=== PATIENT | male | born 1955 | race Caucasian/White ===

== ENCOUNTER 2019-10-31 07:20 | Outpatient (CLI) | payer OTHER, SELFPAY ==
[2019-10-31 07:54] LABS: Hematocrit 39.5 % (42.0-52.0); Hemoglobin 13.7 g/dL (14.0-18.0); Mean Corpuscular HGB Conc 34.7 g/dl (32-36); Mean Corpuscular Hemoglobin 32.3 pg (26-34); Mean Corpuscular Volume 93.2 fl (80-100); Mean Platelet Volume 9.3 fl (7.4-10.4); Platelet Count Result 351 k/mm3 (150-375); Red Blood Count 4.24 M/mm3 (4.6-6.20); Red Cell Distribution Width 12.2 % (11.5-14.5); White Blood Count 5.3 K/mm3 (4.5-10.0)
[2019-10-31 08:14] LABS: Alanine Aminotransferase 28 U/L (4-50); Albumin Level 4.4 g/dL (3.5-5.1); Alkaline Phosphatase 46 U/L (38-126); Aspartate Amino Transferase 32 U/L (17-59); Bilirubin,Total 0.3 mg/dL (0.2-1.3); Blood Urea Nitrogen 9 mg/dL (9-20); Calcium 9.1 mg/dL (8.4-10.2); Carbon Dioxide 24 mmol/L (22-30); Chloride 101 mmol/L (98-107); Cholesterol 201 mg/dL (0-200); Estimated Glomerular Filt Rate > 60; Glucose 95 mg/dL (75-110); HDL Direct 65 mg/dL; Potassium 4.2 mmol/L (3.4-5.0); Sodium 134 mmol/L (137-145); Triglycerides 87 mg/dL (<150)
[2019-10-31 08:25] LABS: LDL Cholesterol Direct 100 mg/dL
[2019-10-31 08:41] LABS: Vitamin D 25 Hydroxy 47.5 ng/mL
[2019-10-31 11:33] LABS: Folic Acid 15.1 ng/mL (2.76->20)
== END 2019-10-31 07:21 | disposition home or self-care (01) ==
PROVIDERS: PCP Internal Medicine; Visit Provider Internal Medicine
DX: R53.83 Other fatigue (principal); E78.00 Pure hypercholesterolemia, unspecified; E55.9 Vitamin D deficiency, unspecified; E53.8 Deficiency of other specified B group vitamins; I10 Essential (primary) hypertension
CPT/HCPCS: 36415; 80053; 80061; 82306; 82607; 82746; 84443; 85027

== ENCOUNTER 2020-04-25 09:43 | Outpatient (CLI) | payer OTHER, SELFPAY ==
[2020-04-25 10:32] LABS: Basophils Absolute Auto 0.1 K/mm3 (0.0-0.1); Basophils Percent Auto 0.8 % (0.2-1.2); Eosinophils Absolute Auto 0.1 K/mm3 (0-0.3); Eosinophils Percent Auto 1.3 % (0-4.4); Hemoglobin 14.2 g/dL (14.0-18.0); Immature Granulocyte Absolute 0.02 K/mm3 (0.00-0.031); Immature Granulocyte Percent A 0.3 % (0-0.5); Lymphocytes Percent Auto 32.3 % (18.3-44.2); Mean Corpuscular HGB Conc 34.6 g/dl (32-36); Mean Corpuscular Volume 95.3 fl (80-100); Mean Platelet Volume 9.1 fl (7.4-10.4); Monocytes Absolute Auto 0.9 K/mm3 (0.1-0.6); Monocytes Percent Auto 13.7 % (2.6-8.5); Neutrophils Absolute Auto 3.2 K/mm3 (1.3-6.7); Neutrophils Percent Auto 51.6 % (45.5-73.1); Platelet Count Result 368 k/mm3 (150-375); Red Cell Distribution Width 12.3 % (11.5-14.5); White Blood Count 6.2 K/mm3 (4.5-10.0)
[2020-04-25 11:16] LABS: Prostate Specific Antigen 2.6 ng/mL (< OR = 4.0)
[2020-04-25 11:46] LABS: Iron 99 ug/dL (49-181)
[2020-04-25 11:59] LABS: Percent Iron Saturation 30 % (20-50)
== END 2020-04-25 09:44 | disposition home or self-care (01) ==
PROVIDERS: PCP Internal Medicine; Visit Provider Internal Medicine
DX: R53.83 Other fatigue (principal); D64.9 Anemia, unspecified; Z12.5 Encounter for screening for malignant neoplasm of prostate; I10 Essential (primary) hypertension
CPT/HCPCS: 36415; 83540; 83550; 84153; 84443; 85025; G0103

== ENCOUNTER 2021-04-27 07:19 | Outpatient (CLI) | payer OTHER, SELFPAY ==
[2021-04-27 08:07] LABS: Basophils Percent Auto 0.8 % (0.2-1.2); Eosinophils Absolute Auto 0.1 K/mm3 (0-0.3); Eosinophils Percent Auto 2.7 % (0-4.4); Hemoglobin 13.8 g/dL (14.0-18.0); Immature Granulocyte Absolute 0.02 K/mm3 (0.00-0.031); Immature Granulocyte Percent A 0.4 % (0-0.5); Lymphocytes Absolute Auto 1.94 K/mm3 (0.9-3.2); Lymphocytes Percent Auto 37.7 % (18.3-44.2); Mean Corpuscular HGB Conc 35.4 g/dl (32-36); Mean Corpuscular Hemoglobin 33.2 pg (26-34); Mean Corpuscular Volume 93.8 fl (80-100); Mean Platelet Volume 9.1 fl (7.4-10.4); Monocytes Absolute Auto 0.7 K/mm3 (0.1-0.6); Monocytes Percent Auto 13.2 % (2.6-8.5); Neutrophils Absolute Auto 2.3 K/mm3 (1.3-6.7); Neutrophils Percent Auto 45.2 % (45.5-73.1); Platelet Count Result 343 k/mm3 (150-375); Red Blood Count 4.16 M/mm3 (4.6-6.20); Red Cell Distribution Width 11.9 % (11.5-14.5); White Blood Count 5.1 K/mm3 (4.5-10.0)
[2021-04-27 08:14] LABS: Iron 71 ug/dL (49-181)
[2021-04-27 08:15] LABS: Alanine Aminotransferase 27 U/L (4-50); Albumin Level 4.5 g/dL (3.5-5.1); Alkaline Phosphatase 44 U/L (38-126); Anion Gap 11 mmol/L (8-16); Aspartate Amino Transferase 36 U/L (17-59); Bilirubin,Total 0.3 mg/dL (0.2-1.3); Blood Urea Nitrogen 8 mg/dL (9-20); Carbon Dioxide 23 mmol/L (22-30); Chloride 98 mmol/L (98-107); Cholesterol 189 mg/dL (0-200); Estimated Glomerular Filt Rate > 60; Glucose 95 mg/dL (65-110); HDL Direct 79 mg/dL; Potassium 4.1 mmol/L (3.4-5.0); Sodium 132 mmol/L (137-145); Triglycerides 90 mg/dL (<150)
[2021-04-27 08:23] LABS: Percent Iron Saturation 24 % (20-50)
[2021-04-27 08:26] LABS: LDL Cholesterol Direct 77 mg/dL
[2021-04-27 08:34] LABS: Vitamin D 25 Hydroxy 44.3 ng/mL
[2021-04-27 08:46] LABS: Prostate Specific Antigen 2.5 ng/mL (< OR = 4.0)
[2021-05-01 18:12] LABS: Folic Acid 19.9 ng/mL (2.76->20)
== END 2021-04-27 07:20 | disposition home or self-care (01) ==
PROVIDERS: PCP Internal Medicine; Visit Provider Internal Medicine
DX: D64.9 Anemia, unspecified (principal); E55.9 Vitamin D deficiency, unspecified; E78.00 Pure hypercholesterolemia, unspecified; I10 Essential (primary) hypertension; R53.83 Other fatigue
CPT/HCPCS: 36415; 80053; 80061; 82306; 82607; 82746; 83540; 83550; 84153; 84443; 85025; G0103

== ENCOUNTER 2021-05-04 00:58 | Day surgery (SDC) | payer OTHER, SELFPAY ==
[2021-04-26 16:01] VITALS: BMI 30.4
[2021-05-04 08:25] VITALS: BP 148/88; PULSE 65; RESP 20; TEMP 37.1; O2SAT 100
--- NOTE | 2021-05-04 08:28 | WPDGICN ---
Assessment and Plan Assessment and plan (1) Rectal bleeding: Code(s): K62.5 - Hemorrhage of anus and rectum Status: Acute Assessment and Plan: Patient has had 1 month of bright red blood per rectum typically with wiping. Plan is for colonoscopy to evaluate more thoroughly. Because of possibility hemorrhoids fiber supplementation is encouraged. Further recommendations may be given after endoscopy. (2) History of colon polyps: Code(s): Z86.010 - Personal history of colonic polyps Status: Acute Assessment and Plan: Patient has a history of adenomatous colon polyps removed from the colon in 2011. Most recent colonoscopy 2017 revealed only mucosal polyp. Follow-up colonoscopy is advised because of this history of adenomatous colon polyps. GI Consult Note Consult date/time: 05/04/21 08:28 HPI: Oral Salmon is a 65 year old male Presents for colonoscopy. Patient has a history of colon polyps in the past. Patient had benign mucosal polyp removed 2016. He had adenomatous polyps removed 2011. He did well however over the last month his notice bright red blood per rectum. Initially this started with wiping but has become somewhat more noticeable over recent weeks. He denies any abdominal pain. His bowel habits are normal. He denies any weight loss. Family history is noncontributory. Patient presents today for surveillance colonoscopy. Review of Systems Review of Systems: All systems reviewed & are unremarkable except as noted in HPI and below PMFSH Family History Family History Mother Patient's mother is in good health Father Patient's father is Other Family history of arthritis Family history of cardiovascular disease Family history of glaucoma Hypertension Social History Social History Smoking packs per day: 2 Smoking cigarettes per day: 40.0 Years smoked: 30 Smoking pack-years: 60.00 Smoking status: Former smoker Tobacco type: cigarettes Second hand tobacco smoke exposure: No Smoking end date: 05/15/11 Alcohol intake: current Drinks per week: 6 Substance use: current Substance use type: marijuana Last use: 04-24-21 Living arrangements: with family Spiritual care concerns: No Meds Home Medications and Allergies Home Medications Medication Instructions Recorded Confirmed Type mecobalamin (vitamin B12) 1,000 1,000 mcg SUBLINGUAL DAILY 04/24/19 05/03/21 History mcg disintegrating tablet,sublingual atenolol 100 mg tablet 100 mg PO DAILY #90 tablet 09/18/20 05/03/21 Rx felodipine 5 mg tablet,extended 5 mg PO DAILY #90 tablet 09/18/20 05/03/21 Rx release 24 hr losartan 100 mg tablet 100 mg PO DAILY #90 tablet 09/18/20 05/03/21 Rx Allergies Allergy/AdvReac Type Severity Reaction Status Date / Time No Known Allergies Allergy Verified 05/04/21 08:24 Exam Narrative: Physical exam reveals patient to be alert. Vital signs stable. HEENT exam is unremarkable. Patient is anicteric. Lungs are clear to auscultation and to percussion. Heart is without murmur or extra sounds. Abdominal exam bowel sounds are present soft nontender with no organomegaly. Digital external rectal exam is normal.
[2021-05-04] MEDS: LACTATED RINGERS 1,000 ML 150 ML IV CONT (08:39)
[2021-05-04 09:56] VITALS: BP 104/70; PULSE 64; RESP 23; O2SAT 100
[2021-05-04 10:06] VITALS: BP 143/90; PULSE 66; RESP 17; O2SAT 100
[2021-05-04 10:16] VITALS: BP 141/89; PULSE 67; RESP 17; O2SAT 99
== END 2021-05-04 10:25 | disposition home or self-care (01) ==
PROVIDERS: PCP Internal Medicine; Visit Provider Internal Medicine Gastroenterology
PROC: 0DJD8ZZ Inspection of Lower Intestinal Tract, Via Natural or Artificial Opening Endoscopic (ICD-10-PCS; CPT 45378; principal; 2021-05-04 09:30)
DX: K62.5 Hemorrhage of anus and rectum (principal); K64.8 Other hemorrhoids; Z86.010 Personal history of colon polyps; Z87.891 Personal history of nicotine dependence
CPT/HCPCS: 45378; J2704; J7120

== ENCOUNTER 2024-12-04 08:34 | Outpatient (CLI) | payer OTHER, SELFPAY ==
--- NOTE | ~2024-12-04 | CT_ITS ---
EXAMINATION: CT lung screening DATE: 12/04/2024 08:50 INDICATION: Z87.891 - Personal history of nicotine dependence TECHNIQUE: Computed tomography (CT) of the chest was performed without intravenous contrast. Addition al 3D reconstructions utilizing coronal maximum intensity projection (MIP) were performed. Automated exposure control and iterative reconstruction technique were employed. The dose-length product was 21 2.65 mGy-cm. COMPARISON: None FINDINGS: Mild emphysema. Mild discoid atelectasis at the posterior basilar right lower lobe and along the ante romedial right minor fissure. A few <3 mm nodules in the left lower lobe and lingula. No pneumonia, p ulmonary edema or pleural effusion. Heart size is normal. Atherosclerotic coronary artery calcific le amos. No pericardial effusion. Thoracic aorta is normal in caliber. Mild bilateral gynecomastia. Smal l sliding-type hiatal hernia. No pathologically enlarged thoracic lymphadenopathy. There are a few lo w-attenuation hepatic lesions measuring up to 1.3 cm which could represent hepatic cysts or hemangiom as. Couple small atherosclerotic calcifications at the right renal hilum. Moderate to severe thoracic spondylosis with chronic appearing mild anterior wedging at T6, T8 and T9. IMPRESSION: 1. . Lung-RADS category 2: Benign appearance or behavior. Continue annual screening with noncontrast low-dose chest CT in 12 months. Reviewed, dictated and finalized at location A. IMPRESSION: 1. . Lung-RADS category 2: Benign appearance or behavior. Continue annual scree deedee with noncontrast low-dose chest CT in 12 months.
--- OUTSIDE RECORDS SUMMARY | 2024-12-04 08:40 | XMS_ITS | Clinical Summary ---
Author Organization [facility] Address [address], [address] [address] Phone Care Team Providers Care Freight Rate Specialist Name Role Phone Hans Michael DO Primary Care Provider Allergies No known active allergies Medications polyethylene glycol (MIRALAX) Powder Mix the entire bottle with 64 oz of a clear liquid. Use as directed by the office for colonoscopy prep. 255 g 0 7 Active losartan (COZAAR) 100 MG Tablet Take 100 mg by mouth daily. Active atenolol (TENORMIN) 100 MG Tablet Take 100 mg by mouth daily. Active Family History Medical History Relation Name Comments Hypertension Brother Prostate Cancer Brother Heart Attack Father Hypertension Father Relation Name Status Comments Brother Father Social History Tobacco Use Types Packs/Day Years Used Date Smoking Tobacco: Former Cigarettes 2 30 1 982 - 2011 Smokeless Tobacco: Never Alcohol Use Standard Drinks/Week Comments Yes 1 (1 standard drink = 0.6 oz pur e alcohol) Sex and Gender Information Value Date Recorded Sex Assigned at Not on file Legal Sex Male 2:43 AM CDT Gender Identity Not on file Sexual Orientation Not on file Plan of Treatment Health Maintenance Due Date Last Done Comments Hepatitis C Virus (HCV) Screening 1955 TdaP Immunization 1955 Cologuard 2002 Immunochemical Fecal Occult Blood 2002 Pneumococcal Immunization (5 0+ years) (1 of 1 - PCV) 12/25/2007 Zoster Immunization (1 of 2) 12/25/2007 Colonoscopy 10/20/2021 10/20/2016 Colorectal Cancer Screening 10/20/2021 SARS-COV-2 Immunization (2023-25 season) 2024 Influenza Immunization (#1) 2025 Respiratory Syncytial Virus (RSV) Immunization (Adult) (1 - 1-dose 75+ series) 2032 Hepatitis B Immunization Aged Out No longer eligible based on patient's age to complete this topic Human Papillomavirus (HPV) Immunization Aged Out No longer eligible b ased on patient's age to complete this topic Meningococcal Immunization (ACWY) Aged Out No longer eligible based on patient's age to complete this topic Rotavirus Immunization Aged Out No lo nger eligible based on patient's age to complete this topic Procedures Procedure Name Priority Date/Time Associated Diagnosis Comments COLONOSCOPY Routine 10/20/2016 from Last 3 Months or Most Recently Relevant to Health Maintenance Results * COLONOSCOPY (10/20/2016) Hans Michael DO PROCEDURE/MINOR SURGICAL OR DERABLES Final Result from Last 3 Months or Most Recently Relevant to Health Maintenance Care Teams Freight Rate Specialist Relationship Specialty Start Date End Date Hans Michael DO [address] [place] [address] PCP - General Internal Medicine 10/26/16
--- OUTSIDE RECORDS SUMMARY | 2024-12-04 08:40 | XMS_ITS | Continuity of Care Document ---
Author Organization [facility] Address [address] [place] [address] Phone Care Team Providers Care Radiator Fitter Name Role Phone Cedric Cerda DO Unavailable Unavailable Advance Directives Directive Yes / No Effective Date File Name No Information Encounters Encounter Description Practice Location Reason(s) For Visit Diagnoses Date Provider Providers Copied on Encounter [facility], [id number] [place] [address] [address], [place], [place], [id number], tel:[phone] [facility] No Information Prashant Renee. [address] [place], [address], [place]. tel:[phone] Family History Family Member Type Diagnosis Age At Onset No Information Payers Payer name Insurance type Covered libertarian ID Authoriza tion(s) No Information Social History Type Description Quantity Date Captured Comments Sex Male Smoking Status No Information Chief Complaint And Reason For Visit No Information Reason For Referral Reason For Referral No Information History Of Present Illness Encounter Date Complaint History Of Prese nt Illness No Information Functional Status Date Functional Assessmen t No Information Instructions Date Instruction Additional Infor mation No Information Assessments Type Assessment Date No Information Patient Care Teams Name Effective Dates (start - stop) Status Members No Information
== END 2024-12-04 08:35 | disposition home or self-care (01) ==
PROVIDERS: PCP Family Medicine; Visit Provider Family Medicine
DX: Z12.2 Encounter for screening for malignant neoplasm of respiratory organs (principal); Z87.891 Personal history of nicotine dependence; J43.9 Emphysema, unspecified
CPT/HCPCS: 71271